=== PATIENT | female | born 1965 | race Caucasian/White ===

== ENCOUNTER → 2017-06-09 | Outpatient (CLI) | payer OTHER ==
[~2017-06-09] MED LIST: ATOR10 PO; DULO30 PO; ERYT.5TO BOTHEYES; IBU800 MG PO; LEVSOD125 PO; Norco 5-325 Ta1 EACH PO; Ultram50 MG PO
[2017-06-09 18:23] LABS: BASOPHILS ABSOLUTE AUTO 0.04 K/mm3 (0.00-0.23); BASOPHILS PERCENT AUTO 1 % (0-2); EOSINOPHILS ABSOLUTE AUTO 0.06 K/mm3 (0.00-0.68); EOSINOPHILS PERCENT AUTO 1 % (0-6); Hematocrit 42.8 % (33.0-51.0); IMMATURE GRAN ABSOLUTE AUTO 0.01 K/mm3 (0.00-0.10); IMMATURE GRAN PERCENT AUTO 0 % (0-1); LYMPHOCYTES ABSOLUTE AUTO 1.38 K/mm3 (0.84-5.20); LYMPHOCYTES PERCENT AUTO 29 % (21-46); MONOCYTES ABSOLUTE AUTO 0.38 K/mm3 (0.16-1.47); MONOCYTES PERCENT AUTO 8 % (4-13); Mean Corpuscular HGB 30.6 pg (26.0-34.0); Mean Corpuscular HGB Conc 32.7 g/dL (31.5-36.5); Mean Corpuscular Volume 94 fL (80-100); Mean Platelet Volume 10.6 fL (9.1-12.4); NEUTROPHILS PERCENT AUTO 61 % (41-73); Platelet Count 253 K/mm3 (150-400); RDW Coefficient Variation 12.1 % (11.7-14.2); RDW Standard Deviation 42.2 fL (35.1-46.3); Red Blood Cell Count 4.57 M/mm3 (3.80-5.20); White Blood Cell Count 4.77 K/mm3 (4.00-11.30)
[2017-06-09 18:27] LABS: Alanine Aminotransfer (ALT/SGP 38 U/L (12-78); Albumin, Blood 3.9 g/dL (3.4-5.0); Alk Phos 130 U/L (50-136); Anion Gap 9 mmol/L (6-16); Aspartate Aminotrans (AST/SGOT 20 U/L (12-37); Bilirubin, Total 0.6 mg/dL (0.1-1.0); Blood Urea Nitrogen 17 mg/dL (8-24); Bun/Creatinine Ratio 21.9 (12.0-20.0); CO2, Blood 28 mmol/L (21-32); Calcium, Blood 8.8 mg/dL (8.5-10.1); Chloride, Blood 102 mmol/L (98-108); Cholesterol 246 mg/dL (50-200); Creatinine, Blood 0.78 mg/dL (0.40-1.00); Free Thyroxine 1.13 ng/dL (0.70-1.60); Globulin, Blood 4.1 g/dL (2.2-4.0); Glomerular Filtration Rate >60 (60-); Glucose, Blood 92 mg/dL (70-99); Sodium, Blood 139 mmol/L (136-145); Triglycerides 287 mg/dL (30-160); Very Low Density Lipoprot Chol 57 mg/dL (6-32)
[2017-06-09 18:32] LABS: CHOL/HDL RATIO 5.3; HDL Cholesterol 46 mg/dL (>39); LDL/HDL RATIO 3.1; Low Density Lipoprotein Chol 143 mg/dL (0-110)
== END ==
LOC: LAB 09:18
PROVIDERS: Nurse Practitioner Adult Health
DX: E78.2 Mixed hyperlipidemia (principal); E89.0 Postprocedural hypothyroidism; I10 Essential (primary) hypertension; M79.1 Myalgia
CPT/HCPCS: 80053; 80061; 84439; 84443; 85025

== ENCOUNTER → 2017-10-28 | Outpatient (CLI) | payer OTHER ==
[~2017-10-28] MED LIST changes: -DULO30 PO; -IBU800 MG PO; -Norco 5-325 Ta1 EACH PO
[2017-10-28 18:01] LABS: BASOPHILS ABSOLUTE AUTO 0.04 K/mm3 (0.00-0.23); BASOPHILS PERCENT AUTO 1 % (0-2); EOSINOPHILS ABSOLUTE AUTO 0.05 K/mm3 (0.00-0.68); EOSINOPHILS PERCENT AUTO 1 % (0-6); Hematocrit 41.7 % (33.0-51.0); Hemoglobin 13.8 g/dL (11.5-16.0); IMMATURE GRAN PERCENT AUTO 0 % (0-1); LYMPHOCYTES PERCENT AUTO 38 % (21-46); MONOCYTES ABSOLUTE AUTO 0.37 K/mm3 (0.16-1.47); MONOCYTES PERCENT AUTO 7 % (4-13); Mean Corpuscular HGB Conc 33.1 g/dL (31.5-36.5); Mean Corpuscular Volume 94 fL (80-100); Mean Platelet Volume 10.6 fL (9.1-12.4); NEUTROPHILS ABSOLUTE AUTO 2.71 K/mm3 (1.96-9.15); NEUTROPHILS PERCENT AUTO 53 % (41-73); Platelet Count 253 K/mm3 (150-400); RDW Coefficient Variation 12.3 % (11.7-14.2); RDW Standard Deviation 42.4 fL (35.1-46.3); Red Blood Cell Count 4.45 M/mm3 (3.80-5.20); White Blood Cell Count 5.07 K/mm3 (4.00-11.30)
[2017-10-28 19:17] LABS: CPK Creatine Kinase 84 U/L (26-193); Free Thyroxine 1.17 ng/dL (0.70-1.60)
[2017-10-28 19:34] LABS: Alanine Aminotransfer (ALT/SGP 27 U/L (12-78); Alk Phos 127 U/L (50-136); Anion Gap 7 mmol/L (6-16); Aspartate Aminotrans (AST/SGOT 17 U/L (12-37); Bilirubin, Total 0.5 mg/dL (0.1-1.0); Blood Urea Nitrogen 14 mg/dL (8-24); Bun/Creatinine Ratio 16.7 (12.0-20.0); CO2, Blood 28 mmol/L (21-32); Chloride, Blood 105 mmol/L (98-108); Creatinine, Blood 0.84 mg/dL (0.40-1.00); Globulin, Blood 4.2 g/dL (2.2-4.0); Glomerular Filtration Rate >60 (60-); Glucose, Blood 83 mg/dL (70-99); Sodium, Blood 140 mmol/L (136-145); Total Protein, Blood 8.2 g/dL (6.4-8.2)
[2017-10-29 12:09] LABS: Antinuclear Antibody Screen Negative (Negative)
== END ==
LOC: LAB SHORT 14:50 → LAB 14:50
PROVIDERS: Nurse Practitioner Adult Health
DX: E78.2 Mixed hyperlipidemia (principal); E89.0 Postprocedural hypothyroidism; I10 Essential (primary) hypertension; M79.1 Myalgia
CPT/HCPCS: 80053; 82550; 84439; 84443; 85025; 86038; 86430

== ENCOUNTER → 2017-12-29 | Outpatient (CLI) | payer OTHER ==
[2017-12-29 19:14] LABS: Free Thyroxine 1.21 ng/dL (0.70-1.60)
[2017-12-29 19:17] LABS: Thyroid Stimulating Hormone 1.11 uIU/mL (0.360-4.800)
== END | disposition home or self-care (01) ==
LOC: LAB SHORT 14:24 → LAB 14:24
PROVIDERS: Nurse Practitioner Adult Health
DX: M25.50 Pain in unspecified joint (principal); M79.1 Myalgia; E89.0 Postprocedural hypothyroidism
CPT/HCPCS: 84439; 84443

== ENCOUNTER → 2018-06-10 | Outpatient (CLI) | payer OTHER ==
[~2018-06-10] MED LIST changes: +DULO30 PO; +IBU800 MG PO; +Norco 5-325 Ta1 EACH PO
[2018-06-10 19:01] LABS: Free Thyroxine 0.99 ng/dL (0.70-1.60)
[2018-06-10 19:04] LABS: Thyroid Stimulating Hormone 4.88 uIU/mL (0.360-4.800)
== END ==
LOC: LAB 17:50 → LAB SHORT 17:50
PROVIDERS: Nurse Practitioner Family
DX: E03.9 Hypothyroidism, unspecified (principal)
CPT/HCPCS: 84439; 84443

== ENCOUNTER → 2018-09-01 | Outpatient (CLI) | payer OTHER | LOC: LAB SHORT 17:45 → LAB 17:45 | DX: R30.0 Dysuria (principal); M54.5 Low back pain | CPT/HCPCS: 87086 ==

== ENCOUNTER 2018-11-10 22:48 | Emergency (ER) | payer OTHER ==
[~2018-11-10] VITALS: Ht 162.6 cm; Wt 68.0 kg
[2018-11-10] MEDS ORDERED: FOLI1 PO (23:37)
[2018-11-10] MEDS ORDERED: CYCL10 PO (23:38)
[2018-11-10] MEDS ORDERED: LEFL20 PO (23:40)
[2018-11-10] MEDS ORDERED: METTREX2.5 PO (23:40)
[2018-11-10] MEDS ORDERED: Flonase 0.05% N16 GM (23:41)
== END 2018-11-11 00:52 | disposition home or self-care (01) ==
LOC: ER 22:48
DX: S76.311A Strain of muscle, fascia and tendon of the posterior muscle group at thigh level, right thigh, initial encounter (principal); R03.0 Elevated blood-pressure reading, without diagnosis of hypertension; X58.XXXA Exposure to other specified factors, initial encounter; Z88.5 Allergy status to narcotic agent; Z79.899 Other long term (current) drug therapy; Z91.048 Other nonmedicinal substance allergy status; Z87.891 Personal history of nicotine dependence
CPT/HCPCS: 93971; 99283-25

== ENCOUNTER → 2019-01-04 | Outpatient (CLI) | payer OTHER ==
[~2019-01-04] MED LIST changes: +ADAL40PEN SC; +Aspir 8181 MG PO; +CYCL10 PO; +FOLI1 PO; +Flonase 0.05% N16 GM; +INFLECTRA100 MG IV; +LEFL20 PO; +METTREX2.5 PO
== END | disposition home or self-care (01) ==
LOC: LAB SHORT 17:16 → LAB 17:16
DX: N39.0 Urinary tract infection, site not specified (principal)
CPT/HCPCS: 87086

== ENCOUNTER → 2019-01-21 | Outpatient (CLI) | payer OTHER ==
[2019-01-21 19:41] LABS: Source, Urine Clean Catch
[2019-01-21 20:22] LABS: Bacteria Not Seen /hpf; Red Blood Cells, Urine Not Seen /hpf (0-2); Squamous Epithelial Cells Rare /hpf (Few); White Blood Cells, Urine Rare /hpf (0-5)
== END ==
LOC: LAB SHORT 19:39 → LAB 19:39
PROVIDERS: Nurse Practitioner Family
DX: R35.0 Frequency of micturition (principal)
CPT/HCPCS: 81015; 87086

== ENCOUNTER 2019-01-27 00:01 | Day surgery (SDC) | payer OTHER ==
[~2019-01-27 00:01] MED LIST changes: -ADAL40PEN SC; -Aspir 8181 MG PO; -INFLECTRA100 MG IV
[2019-01-27 14:21] LABS: BASOPHILS ABSOLUTE AUTO 0.04 K/mm3 (0.00-0.23); BASOPHILS PERCENT AUTO 1 % (0-2); EOSINOPHILS ABSOLUTE AUTO 0.05 K/mm3 (0.00-0.68); EOSINOPHILS PERCENT AUTO 1 % (0-6); Hematocrit 43.4 % (33.0-51.0); Hemoglobin 14.3 g/dL (11.5-16.0); IMMATURE GRAN PERCENT AUTO 0 % (0-1); LYMPHOCYTES ABSOLUTE AUTO 1.52 K/mm3 (0.84-5.20); LYMPHOCYTES PERCENT AUTO 34 % (21-46); MONOCYTES ABSOLUTE AUTO 0.37 K/mm3 (0.16-1.47); MONOCYTES PERCENT AUTO 8 % (4-13); Mean Corpuscular HGB 31.8 pg (26.0-34.0); Mean Corpuscular HGB Conc 32.9 g/dL (31.5-36.5); Mean Corpuscular Volume 97 fL (80-100); Mean Platelet Volume 9.7 fL (9.1-12.4); NEUTROPHILS ABSOLUTE AUTO 2.56 K/mm3 (1.96-9.15); NEUTROPHILS PERCENT AUTO 56 % (41-73); Platelet Count 275 K/mm3 (150-400); RDW Coefficient Variation 12.2 % (11.7-14.2); RDW Standard Deviation 43.8 fL (35.1-46.3); Red Blood Cell Count 4.49 M/mm3 (3.80-5.20); White Blood Cell Count 4.54 K/mm3 (4.00-11.30)
[2019-01-27] MEDS ORDERED: Aspir 8181 MG PO (15:46)
[2019-01-27] MEDS ORDERED: ADAL40PEN SC (15:48)
== END 2019-01-27 16:20 | disposition home or self-care (01) ==
LOC: ATC 00:01
PROVIDERS: Internal Medicine Rheumatology
DX: M05.9 Rheumatoid arthritis with rheumatoid factor, unspecified (principal); I10 Essential (primary) hypertension; K21.9 Gastro-esophageal reflux disease without esophagitis; F41.0 Panic disorder [episodic paroxysmal anxiety]; Z91.048 Other nonmedicinal substance allergy status; Z88.5 Allergy status to narcotic agent; Z79.899 Other long term (current) drug therapy; Z79.82 Long term (current) use of aspirin; Z87.891 Personal history of nicotine dependence
CPT/HCPCS: 84450; 85025; 85651; 96413; 96415; J7050; Q5103

== ENCOUNTER 2019-02-19 00:36 | Day surgery (SDC) | payer OTHER ==
[~2019-02-19 00:36] MED LIST changes: +ADAL40PEN SC; +Aspir 8181 MG PO
--- NOTE | 2019-02-19 14:41 | NUR ---
PT HERE FOR INFLECTRA. PT STATES SHE IS TAKING ANTIBIOTICS FOR TOOTH PROBLEMS ASSOCIATED TO A CROWN. DR CARDENAS NOT IN OFFICE SO APPT IS CANCELLED UNTIL THEY CAN GET AHOLD OF DR. PT WILL TRY ON FRIDAY.
== END 2019-02-19 22:59 | disposition home or self-care (01) ==
LOC: ATC 00:36
DX: M05.9 Rheumatoid arthritis with rheumatoid factor, unspecified (principal); I10 Essential (primary) hypertension; E78.2 Mixed hyperlipidemia; K21.9 Gastro-esophageal reflux disease without esophagitis; Z88.5 Allergy status to narcotic agent; Z87.891 Personal history of nicotine dependence; Z91.048 Other nonmedicinal substance allergy status; Z79.899 Other long term (current) drug therapy; Z79.82 Long term (current) use of aspirin

== ENCOUNTER 2019-03-01 00:11 | Day surgery (SDC) | payer OTHER | END 2019-03-01 23:19 | disposition home or self-care (01) | LOC: ATC 00:11 | DX: M05.9 Rheumatoid arthritis with rheumatoid factor, unspecified (principal); E03.9 Hypothyroidism, unspecified; E78.2 Mixed hyperlipidemia; I10 Essential (primary) hypertension; M79.7 Fibromyalgia; K21.9 Gastro-esophageal reflux disease without esophagitis; F41.9 Anxiety disorder, unspecified; Z79.82 Long term (current) use of aspirin; F17.210 Nicotine dependence, cigarettes, uncomplicated; Z79.899 Other long term (current) drug therapy; Z91.048 Other nonmedicinal substance allergy status; Z88.5 Allergy status to narcotic agent ==

== ENCOUNTER 2019-03-04 00:24 | Day surgery (SDC) | payer OTHER ==
[2019-03-04] MEDS ORDERED: INFLECTRA100 MG IV (13:58)
[2019-03-04 14:32] LABS: BASOPHILS ABSOLUTE AUTO 0.03 K/mm3 (0.00-0.23); BASOPHILS PERCENT AUTO 1 % (0-2); EOSINOPHILS ABSOLUTE AUTO 0.04 K/mm3 (0.00-0.68); EOSINOPHILS PERCENT AUTO 1 % (0-6); Hematocrit 41.8 % (33.0-51.0); Mean Corpuscular HGB Conc 33.5 g/dL (31.5-36.5); Mean Corpuscular Volume 93 fL (80-100); Mean Platelet Volume 10.3 fL (9.1-12.4); Platelet Count 198 K/mm3 (150-400); RDW Coefficient Variation 12.1 % (11.7-14.2); RDW Standard Deviation 41.1 fL (35.1-46.3); Red Blood Cell Count 4.51 M/mm3 (3.80-5.20); White Blood Cell Count 3.57 K/mm3 (4.00-11.30)
[2019-03-04 14:34] LABS: IMMATURE GRAN ABSOLUTE AUTO 0.01 K/mm3 (0.00-0.10); IMMATURE GRAN PERCENT AUTO 0 % (0-1); LYMPHOCYTES ABSOLUTE AUTO 1.31 K/mm3 (0.84-5.20); LYMPHOCYTES PERCENT AUTO 37 % (21-46); MONOCYTES ABSOLUTE AUTO 0.28 K/mm3 (0.16-1.47); MONOCYTES PERCENT AUTO 8 % (4-13); NEUTROPHILS PERCENT AUTO 53 % (41-73)
== END 2019-03-04 16:47 | disposition home or self-care (01) ==
LOC: ATC 00:24
PROVIDERS: Internal Medicine Rheumatology
DX: M05.9 Rheumatoid arthritis with rheumatoid factor, unspecified (principal); M79.7 Fibromyalgia; I10 Essential (primary) hypertension; E78.00 Pure hypercholesterolemia, unspecified; E78.2 Mixed hyperlipidemia; K21.9 Gastro-esophageal reflux disease without esophagitis; F41.9 Anxiety disorder, unspecified; E03.9 Hypothyroidism, unspecified; Z87.891 Personal history of nicotine dependence; Z79.82 Long term (current) use of aspirin; Z79.899 Other long term (current) drug therapy; Z88.5 Allergy status to narcotic agent; Z91.048 Other nonmedicinal substance allergy status
CPT/HCPCS: 84460; 85025; 85651; 96413; 96415; J7050; Q0163; Q5103

== ENCOUNTER → 2019-03-22 | Outpatient (CLI) | payer OTHER ==
[~2019-03-22] MED LIST changes: +INFLECTRA100 MG IV
== END | disposition home or self-care (01) ==
LOC: LAB SHORT 18:24 → LAB 18:24
DX: E03.9 Hypothyroidism, unspecified (principal)
CPT/HCPCS: 84443

== ENCOUNTER 2019-04-21 00:13 | Day surgery (SDC) | payer OTHER ==
[2019-04-21 14:28] LABS: BASOPHILS ABSOLUTE AUTO 0.04 K/mm3 (0.00-0.23); BASOPHILS PERCENT AUTO 1 % (0-2); EOSINOPHILS ABSOLUTE AUTO 0.06 K/mm3 (0.00-0.68); EOSINOPHILS PERCENT AUTO 1 % (0-6); Hematocrit 42.9 % (33.0-51.0); IMMATURE GRAN ABSOLUTE AUTO 0.01 K/mm3 (0.00-0.10); IMMATURE GRAN PERCENT AUTO 0 % (0-1); LYMPHOCYTES ABSOLUTE AUTO 1.46 K/mm3 (0.84-5.20); LYMPHOCYTES PERCENT AUTO 25 % (21-46); MONOCYTES ABSOLUTE AUTO 0.37 K/mm3 (0.16-1.47); MONOCYTES PERCENT AUTO 6 % (4-13); Mean Corpuscular HGB 31.5 pg (26.0-34.0); Mean Corpuscular HGB Conc 32.6 g/dL (31.5-36.5); Mean Corpuscular Volume 97 fL (80-100); Mean Platelet Volume 10.2 fL (9.1-12.4); NEUTROPHILS ABSOLUTE AUTO 3.82 K/mm3 (1.96-9.15); NEUTROPHILS PERCENT AUTO 66 % (41-73); Platelet Count 274 K/mm3 (150-400); RDW Coefficient Variation 12.2 % (11.7-14.2); RDW Standard Deviation 43.6 fL (35.1-46.3); Red Blood Cell Count 4.44 M/mm3 (3.80-5.20); White Blood Cell Count 5.76 K/mm3 (4.00-11.30)
--- NOTE | 2019-04-21 16:02 | NUR ---
PT HAD REACTION EARLY ON DURING INFLECTRA INFUSION. INFUSION WAS STARTED AT A RATE OF 20ML/HR THEN AFTER 15 MIN WAS BUMPED UP TO 40ML/HR. AFTER A TOTAL OF 8.7 MLS OF INFLECTRA HAD INFUSED PT C/O CHEST PRESSURE, DRY COUGH, PANICKY FEELING AND FEELING "NOT RIGHT". THIS RN STOPPED INFUSION AND CALLED DR MCKEON. AN ORDER FOR BENADRYL ON SOLUMEDROL WAS OBTAINED. BY THE TIME THESE MEDS WERE GIVEN THE PT WAS ALREADY FEELING BETTER. KEPT PT FOR 45 MINUTES AND SYMPTOMS OTHER THAN HTN RESOLVED. PT STS SHE WILL FOLLOW UP WITH DR CARDENAS. IT WAS ALSO NOTED THE HER TEMPEROL TEMPERATURE WAS CONSISTENTLY 1 DEGREE HIGHER ON HER L SABIANISM.
== END 2019-04-21 16:05 | disposition home or self-care (01) ==
LOC: ATC 00:13
PROVIDERS: Internal Medicine Rheumatology
DX: M05.9 Rheumatoid arthritis with rheumatoid factor, unspecified (principal); M79.7 Fibromyalgia; E03.8 Other specified hypothyroidism; K21.9 Gastro-esophageal reflux disease without esophagitis; E78.2 Mixed hyperlipidemia; I10 Essential (primary) hypertension; F33.0 Major depressive disorder, recurrent, mild; F41.0 Panic disorder [episodic paroxysmal anxiety]; Z79.82 Long term (current) use of aspirin; Z79.899 Other long term (current) drug therapy; Z87.891 Personal history of nicotine dependence; Z88.5 Allergy status to narcotic agent; Z91.048 Other nonmedicinal substance allergy status
CPT/HCPCS: 84450; 85025; 85651; 96375; 96413; 99211; J2930; J7050; Q0163; Q5103

== ENCOUNTER → 2021-05-21 | Outpatient (CLI) | payer OTHER ==
[2021-05-21 16:01] LABS: BASOPHILS ABSOLUTE AUTO 0.04 K/mm3 (0.00-0.23); BASOPHILS PERCENT AUTO 1 % (0-2); EOSINOPHILS ABSOLUTE AUTO 0.01 K/mm3 (0.00-0.68); EOSINOPHILS PERCENT AUTO 0 % (0-6); Hematocrit 42.1 % (33.0-51.0); Hemoglobin 13.9 g/dL (11.5-16.0); IMMATURE GRAN ABSOLUTE AUTO 0.01 K/mm3 (0.00-0.10); IMMATURE GRAN PERCENT AUTO 0 % (0-1); LYMPHOCYTES ABSOLUTE AUTO 1.37 K/mm3 (0.84-5.20); LYMPHOCYTES PERCENT AUTO 22 % (21-46); MONOCYTES ABSOLUTE AUTO 0.44 K/mm3 (0.16-1.47); MONOCYTES PERCENT AUTO 7 % (4-13); Mean Corpuscular HGB 31.6 pg (26.0-34.0); Mean Corpuscular Volume 96 fL (80-100); Mean Platelet Volume 10.6 fL (9.1-12.4); NEUTROPHILS ABSOLUTE AUTO 4.27 K/mm3 (1.96-9.15); NEUTROPHILS PERCENT AUTO 69 % (41-73); Platelet Count 271 K/mm3 (150-400); RDW Coefficient Variation 12.2 % (11.7-14.2); RDW Standard Deviation 43.3 fL (35.1-46.3); White Blood Cell Count 6.14 K/mm3 (4.00-11.30)
[2021-05-21 16:08] LABS: Alanine Aminotransfer (ALT/SGP 48 U/L (12-78); Albumin, Blood 3.9 g/dL (3.4-5.0); Alk Phos 123 U/L (50-136); Anion Gap 3 mmol/L (6-16); Aspartate Aminotrans (AST/SGOT 24 U/L (12-37); Bilirubin, Total 0.4 mg/dL (0.1-1.0); Blood Urea Nitrogen 9 mg/dL (8-24); Bun/Creatinine Ratio 12.3 (12.0-20.0); CO2, Blood 29 mmol/L (21-32); Calcium, Blood 9.4 mg/dL (8.5-10.1); Chloride, Blood 106 mmol/L (98-108); Creatinine, Blood 0.73 mg/dL (0.40-1.00); Globulin, Blood 3.8 g/dL (2.2-4.0); Glomerular Filtration Rate >60 (60-); Glucose, Blood 105 mg/dL (70-99); Potassium, Blood 4.3 mmol/L (3.5-5.5); Sodium, Blood 138 mmol/L (136-145); Total Protein, Blood 7.7 g/dL (6.4-8.2)
== END | disposition home or self-care (01) ==
LOC: LAB SHORT 14:46
PROVIDERS: Internal Medicine Rheumatology
DX: M05.9 Rheumatoid arthritis with rheumatoid factor, unspecified (principal)
CPT/HCPCS: 80053; 85025; 85651

== ENCOUNTER → 2023-02-11 | Outpatient (CLI) | payer OTHER | END | disposition home or self-care (01) | LOC: LAB 12:00 → LAB SHORT 12:00 | PROVIDERS: Family Medicine | DX: N18.30 Chronic kidney disease, stage 3 unspecified (principal); D63.1 Anemia in chronic kidney disease; N25.81 Secondary hyperparathyroidism of renal origin; E55.9 Vitamin D deficiency, unspecified; D51.8 Other vitamin B12 deficiency anemias; D52.8 Other folate deficiency anemias; D50.9 Iron deficiency anemia, unspecified; R76.9 Abnormal immunological finding in serum, unspecified; R94.5 Abnormal results of liver function studies; R94.6 Abnormal results of thyroid function studies; Z79.899 Other long term (current) drug therapy | CPT/HCPCS: G0480 ==

== ENCOUNTER → 2023-05-23 | Outpatient (CLI) | payer OTHER | END | disposition home or self-care (01) | LOC: LAB SHORT 12:08 → LAB 12:08 | DX: R05.3 Chronic cough (principal) | CPT/HCPCS: 87070; 87205 ==

== ENCOUNTER 2024-02-16 11:29 | Day surgery (SDC) | payer OTHER ==
[~2024-02-16] VITALS: Ht 162.6 cm; Wt 72.2 kg
[~2024-02-16 11:29] MED LIST changes: +Lactated Ringer's 1,000 ML IV ONE; +propofoL 50 ML IV ONE
[2024-02-16] MEDS ORDERED: HYDSUL200 (12:09)
[2024-02-16] MEDS ORDERED: Lactated Ringer's 1,000 ML IV ONE (12:24)
--- NOTE | 2024-02-16 12:26 | NUR ---
02/16/24 1226 Dayanara Abdullahi PT. VERBALIZES PAIN IN RIGHT HIP RATING A "6", PT. HAS RA.
--- NOTE | 2024-02-16 14:07 | NUR ---
02/16/24 0544 Dayanara Abdullahi S PT. VERBALIZES HER RIGHT HIP HURTING. PT. VERBALIZES FROM BEING STILL DURING THE PROCEDURE BUT ALSO SHE HAS RHEUMATOID ARTHRITIS & IS BEING SEEN BY A DRCiro FOR THIS. A PILLOW WAS PLACED BETWEEN HER KNEES DURING THE PROCEDURE & THEN AFTER A PILLOW WAS PLACED UNDER HER RIGHT HIP ACCORDING TO HER COMFORT. PT.'S PARTNER GOT HER DRESSED & PT. WAS TAKEN OUT BY WC.
[2024-02-16 14:08] VITALS: BP 121/78
== END 2024-02-16 13:40 | disposition home or self-care (01) ==
LOC: ORSCSDS 11:29
PROVIDERS: Specialist
PROC: 0DBN8ZX Excision of Sigmoid Colon, Via Natural or Artificial Opening Endoscopic, Diagnostic (ICD-10-PCS; principal; 2024-02-16 12:30)
DX: Z12.11 Encounter for screening for malignant neoplasm of colon (principal); D12.5 Benign neoplasm of sigmoid colon; K64.8 Other hemorrhoids; Z80.0 Family history of malignant neoplasm of digestive organs; Z83.719 Family history of colon polyps, unspecified; M06.9 Rheumatoid arthritis, unspecified; M79.7 Fibromyalgia; E78.5 Hyperlipidemia, unspecified; E07.9 Disorder of thyroid, unspecified; Z79.899 Other long term (current) drug therapy; Z87.891 Personal history of nicotine dependence
CPT/HCPCS: 88305; J2704; J7120